=== PATIENT | female | born 1990 | race Two or more races ===

== ENCOUNTER 2024-11-28 09:54 | Emergency (ER) | payer MEDICAID, SELFPAY ==
[2024-11-28 10:17] VITALS: BP 154/98; PULSE 104; RESP 16; TEMP 37.1; O2SAT 98
--- NOTE | 2024-11-28 10:20 | EKG_ITS ---
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
--- NOTE | 2024-11-28 10:20 | XR_ITS ---
Examination: PA lateral chest 2 views TECHNIQUE: Upright PA lateral chest 2 views Date and time: November 28, 2024, 1030 hours INDICATIONS: Chest pain beginning 2 days ago. FINDINGS: Normal heart size The lungs are clear. Suspicious for 20 mm cavitary lesion in the left upper lobe No lobar pneumonia IMPRESSION: Recommend AP lordotic chest follow-up to exclude 20 mm cavitary lesion in the left upper lobe
--- NOTE | 2024-11-28 10:20 | XR_ITS ---
Examination: CT brain head without contrast. 2-D sagittal coronal reconstructions Date and time of exam:November 28, 2024, 1051 hours INDICATIONS: Onset generalized head pain today CTDI: vol (mGy):49.4 DLP: (mGycm):1004 Technique: Multiple CT axial sections of the brain have been obtained, 5 mm slice thickness. Contrast has not been administered. 2-D sagittal, coronal reconstructions have been obtained Low dose protocols were performed. One or more of the following dose reduction techniques were used; automated exposure control, adjustment of the mA and/or KV according to patient size, use of iterative reconstruction technique. Findings: No significant ventricular enlargement. Intra-axial or extra-axial hemorrhage density is not seen. No mass effect or midline shift Basal cisterns are not remarkable. Fourth ventricle is midline. Cranial vault intact. Impression: Negative for acute hemorrhage, mass effect or midline shift Advise clinical correlation follow-up accordingly
[2024-11-28 10:49] LABS: Basophils # (Auto) 0.1 Thou/mm3 (0.0-0.2); Basophils % (Auto) 1 % (0-2.5); Eosinophils # (Auto) 0.0 Thou/mm3 (0.0-0.5); Eosinophils % (Auto) 1 % (0-10); Hematocrit 34.8 % (36.0-46.0); Hemoglobin 11.3 g/dL (12.0-16.0); Immature Granulocytes Auto 0.01 Thou/mm3 (0.00-0.00); Lymphocytes # (Auto) 1.5 Thou/mm3 (1.0-4.8); Lymphocytes % (Auto) 23 % (10-50); Mean Corpuscular HGB Conc 32.5 g/dl (31.0-37.0); Mean Corpuscular Hemoglobin 29.4 pg (25.0-35.0); Mean Corpuscular Volume 91 fL (80-100); Monocytes # (Auto) 0.5 Thou/mm3 (0.0-0.8); Monocytes % (Auto) 8 % (0-12); Neutrophils # (Auto) 4.5 Thou/mm3 (1.8-7.7); Neutrophils % (Auto) 68 % (37-80); Nucleated Red Blood Cell # 0.00 Thou/mm3 (0.00-0.00); Nucleated Red Blood Cell % 0 /100 WBC (0); Platelet Count 363 Thou/mm3 (140-440); RDW Standard Deviation 42.4 fL (36.4-46.3); Red Blood Count 3.84 Miln/mm3 (4.00-5.20); White Blood Count 6.6 Thou/mm3 (3.6-11.0)
--- NOTE | 2024-11-28 10:49 | EDRME_ITS ---
Rapid Medical Screening Exam [facility] Arrival date/time: 11/28/24 09:54 34-year-old female presents to the Emergency Department for complaints of headache, chest pressure, and fingers tingling ongoing x 1 week Chief Complaint: Headache Vital signs: Vital Signs Temperature 98.7 F 11/28/24 10:17 Pulse Rate 104 H 11/28/24 10:17 Respiratory Rate 16 11/28/24 10:17 Blood Pressure 154/98 H 11/28/24 10:17 Pulse Oximetry (%) 98 11/28/24 10:17 Oxygen Delivery Method Room Air 11/28/24 10:17
[2024-11-28 11:14] LABS: Alanine Aminotransferase 12 U/L (10-49); Albumin, Serum 4.6 gm/dL (3.5-5.0); Albumin/Globulin Ratio 1.8 (1.2-2.2); Alkaline Phosphatase 75 U/L (46-116); Anion Gap 10 (7-16); Aspartate Amino Transferase 16 U/L (0-34); BUN/Creatinine Ratio 6 Ratio (12-20); Bilirubin,Total 0.6 mg/dL (0.3-1.2); Blood Urea Nitrogen < 5 mg/dL (9-23); Calcium 9.9 mg/dL (8.3-10.6); Calcium (Corrected) 9.9 mg/dL (8.5-10.1); Carbon Dioxide 26.3 mMol/L (20.0-31.0); Chloride 106 mMol/L (98-107); Creatinine (Component) 0.9 mg/dL (0.6-1.3); Estimated Creatinine Clearance 95.7 mL/min (>60); Free T4 (Free Thyroxine) 1.28 ng/dL (0.89-1.76); Globulin 2.6 gm/dL (2.3-3.5); Glucose 100 mg/dL (74-106); Osmolality,Calculated 280 (275-295); Potassium 3.9 mMol/L (3.4-5.1); Sodium 142 mMol/L (136-145); Thyroid Stimulating Hormone 1.10 uIU/mL (0.55-4.78); Total Protein 7.2 gm/dL (5.7-8.2); Troponin I < 0.002 ng/mL (0.0-0.045); eGFR > 60 See Note
[2024-11-28 11:17] LABS: Collection Type, Urine Clean Catch
[2024-11-28 11:27] LABS: HCG Qualitative,Urine Negative
[2024-11-28 11:33] LABS: Bilirubin,Urine Negative (Negative); Blood,Urine 3+ (Negative); Clarity,Urine Clear (Clear/Hazy); Culture Indicated,Urine Not Indicated; Glucose, Urine Negative (Negative); Ketones,Urine Negative (Negative); Leukocyte Esterase,Urine Positive (Negative); Nitrite,Urine Negative (Negative); PH,Urine 6.5 (5.0-7.0); Protein,Urine 1+ (Neg - Trace); RBC,Urine 148 /hpf (0-3); Specific Gravity,Urine 1.005 (1.001-1.035); Squamous Epithelial Cell,Urine < 1 /hpf (0-5); Urobilinogen,Urine Negative mg/dL (0.0-1.0); WBC,Urine 8 /hpf (0-5)
[2024-11-28 11:40] LABS: Color,Urine Lt-Red (Lt Yel-Yel)
--- NOTE | 2024-11-28 12:16 | EDNOTE_ITS ---
ED Headache RME/HPI General Chief Complaint: Headache Stated Complaint: HEADACHE SINCE TUESDAY, TINGLING IN FINGERS Time Seen by Provider: 11/28/24 11:30 Arrival date/time: 11/28/24 09:54 RME / HPI RME / HPI Narrative: 34-year-old female patient with significant history of anxiety presents to the Emergency Department for complaints of headache, chest pressure, and bilateral hand/fingers tingling ongoing x 1 week. Headache is described as dull ache, location top of the head, severity mild. Patient also complained of chest pressure, has been ongoing for 2 days, severity mild. Patient denies any cough denies any fever denies any shortness of breath denies any losing weight. Denies any exposure to somebody who is having chronic cough. No medication was taken prior to ER visit. Related Data Home Medications ?Medication ?Instructions ?Recorded ?Confirmed [id number] 1 mg 1 tab PO DAILY #0 tab s 09/27/13 10/07/20 tablet Previous Rx's ?Medication ?Instructions ?Recorded ibuprofen 800 mg tablet 800 mg PO Q8H PRN pain #30 t abs 07/26/20 hydrocodone 5 mg-acetaminophen 300 1 tab PO Q4H PRN pa in #30 tabs 10/07/20 mg tablet rizatriptan 10 mg tablet (Maxalt) 10 mg PO Q2H PRN lisa marian headache 11/28/24 #20 tabs Allergies Allergy/AdvReac Type Severity Reaction Status Date / Time naproxen Allergy Mild Swelling Verified 11/28/24 09:57 of Lip/Tongue/Throat Review of Systems Review of Systems Narrative Review of Systems: Review of system reviewed and within normal limits except mentioned in HPI ED Exam Narrative Physical exam: VITAL SIGNS: Reviewed. GENERAL APPEARANCE: Alert and interactive, follows commands, no acute distress, HEAD AND FACE: Non-traumatic. ENT: PERRL, pink conjunctivitis, eyelid no trauma, Mucous membrane moist. NECK: Supple, nontender, no nuchal rigidity. CHEST: No tenderness, no crepitus, no paradoxical movement, no retractions. LUNGS: Clear, well ventilated, symmetric, no rales, no wheezing, no ronchi, no stridor, good breath sounds bilaterally. HEART: Regular rate, regular rhythm, no murmur, no gallops. ABDOMEN: Soft, positive bowel sounds, nondistended, no guarding, nontender, no rebound, no masses, RECTAL: Deferred. GENITAL: Deferred. NEUROLOGICAL: Gross motor function intact sensory function intact, Appropriate for age. MUSCULOSKELETAL: low back nontender, full range of motion. EXTREMITIES: Nontender, full range of motion. SKIN: Color pink, dry, no rash, no lacerations, no abrasions, no contusions. LYMPHATICS: Deferred. Course Quality Measures none Orders Category Date Time Status EKG (ED ONLY) *Do not use* NOW Care 11/28/24 10:[address] head/brain wo con Stat Exams 11/28/24 10:20 Completed EKG (ED Only) Stat Exams 11/28/24 10:20 Draft XR chest 2V Stat Exams 11/28/24 10:20 Completed CBC Stat Lab 11/28/24 10:22 Completed Comprehensive Metabolic Panel Stat Lab 11/28/24 10:22 Completed Free T4 (Free Thyroxine) Stat Lab 11/28/24 10:22 Completed HCG Qualitative,Urine Stat Lab 11/28/24 11:00 Completed TSH [Thyroid Stimulating Hormone] Stat Lab 11/28/24 10:22 Completed Troponin I Stat Lab 11/28/24 10:22 Completed UA, C/S IF [Urinalysis, C/S if Indicated] Stat Lab 11/28/24 11:00 Completed Vital Signs Vital signs: Vital Signs Temperature 98.7 F 11/28/24 10:17 Pulse Rate 104 H 11/28/24 10:17 Respiratory Rate 16 11/28/24 10:17 Blood Pressure 154/98 H 11/28/24 10:17 Pulse Oximetry (%) 98 11/28/24 10:17 Oxygen Delivery Method Room Air 11/28/24 10:17 Headache MDM Narrative MDM Narrative:: 34-year-old female patient with significant history of anxiety presents to the Emergency Department for complaints of headache, chest pressure, and bilateral hand/fingers tingling ongoing x 1 week. Headache is described as dull ache, location top of the head, severity mild. Patient also complained of chest pressure, has been ongoing for 2 days, severity mild. Patient denies any cough denies any fever denies any shortness of breath denies any losing weight. Denies any exposure to somebody who is having chronic cough. No medication was taken prior to ER visit. CT scan of the head came back unremarkable. Patient's CBC also came back normal no pathology for metabolic abnormality noted. Troponin is normal. Patient's urinalysis is a dirty collection, patient told me that she is on her menstruation today. Denies any dysuria. EKG showed normal sinus rhythm, ventricular rate of 97 beats per per minute, no ST segment elevation or depression noted. Chest x-ray showed Normal heart size The lungs are clear. Suspicious for 20 mm cavitary lesion in the left upper lobe No lobar pneumonia Results of the CT scan of the head and chest x-ray and laboratory findings all discussed with the patient, especially the chest x-ray that showed possible cavitary lesions in the lung. Patient is denying any symptoms in the lung. Patient was advised to closely follow-up with PCP and for further imaging of her chest. Patient told me that she will see her PCP in few days. I will discharge this patient on Maxalt. Further imaging is not needed at this time. Patient appears nontoxic and hemodynamically stable .Decision to discharge the patient. The patient/family was given an opportunity to ask questions and understood their discharge instructions. Discharge instructions specifically included follow up provider and time frame, current and/or new medications and possible side effects, indications for sooner follow up or return to the emergency department, and the expected course of current diagnosis. Patient reports feeling better as well and giving evidence of significant clinical improvement, I believe patient is now a candidate for discharge. Patient data External records reviewed:: None Clinical information provided by:: patient Social determinants that could affect healthcare access:: none Patient has the following chronic illnesses:: None How is presenting disease/condition affected by chronic disease/condition?: no chronic disease Evaluation data The following diagnostics were reviewed and interpreted by me:: lab results, radiology exam(s) and EKG tracing(s) Lab and/or radiology exams considered but not ordered:: None Interpretation Summary: See results MDM Medications / Prescriptions Medications or Prescriptions considered but not ordered:: None Medication administrations:: None Consultations Consultation(s) initiated? (list below): No Diagnosis Differential diagnosis headache: migraine, headache and other (CVA, anxiety) Most likely diagnosis given after review of the tests above:: Headache, incidental finding of possible lesion in the lung, Admission Indicated Admission indicated?: not indicated Admission Request Was there a request for admission?: No Disposition Plan Disposition Plan: Discharge Discharge Attestation Discharge Attestation: The patient was given an opportunity to ask questions and understood the discharge instructions. Discharge instructions specifically effects, indications for sooner follow up or return to the emergency department, and the expected course of current diagnosis. Patient condition: Stable Discharge Plan Plan Patient Disposition: HOME (Self Care) Discharge Disposition comment: Stable Prescriptions/Referrals Prescriptions/Med Rec: New rizatriptan [Maxalt] 10 mg tablet 10 mg PO Q2H PRN (Reason: migraine headache) Qty: 20 0RF Rx Instructions: do not exceed 3 doses per 24 hrs No Action [id number] 1 mg Tablet 1 tab PO DAILY Qty: 0 hydrocodone-acetaminophen 5-300 mg tablet 1 tab PO Q4H MDD 6 PRN (Reason: pain) Qty: 30 0RF ibuprofen 800 mg tablet 800 mg PO Q8H PRN (Reason: pain) Qty: 30 0RF Referrals: Vince Zapien MD [Primary Care Provider] - In 1 week Problem List Clinical Impression: Headache Patient/Caregiver Discharge Instructions Discharge Activity: activity as tolerated Education Materials: Self-Care for Headaches Additional Instructions: Thank you for the opportunity for serving you today. You are stable for discharged . You are advised to: Follow-up with your PCP in 1 to 2 days Return to ED for worsening of symptoms Increase oral fluids Take medication as prescribed Please follow-up with your PCP and ask for further evaluation regarding your possible lesion in your lung. CT scan of your head today came back unremarkable Print Language: Uzbek Stand Alone Forms: Carly Award Info., Patient Portal Info Letter CHERRY/DONNELL Supervising Physician ANAT Supervising Physician: MD Maribell
== END 2024-11-28 12:40 | disposition home or self-care (01) ==
PROVIDERS: Nurse Practitioner Primary Care; Emergency Provider Emergency Medicine; PCP Family Medicine
DX: R51.9 Headache, unspecified (principal); R07.89 Other chest pain; R20.2 Paresthesia of skin
CPT/HCPCS: 36415; 70450; 71046; 80053; 81001; 81025; 84439; 84443; 84484; 85025; 93005; 99284

== ENCOUNTER → 2025-01-09 | Outpatient (CLI) | payer MEDICAID, SELFPAY ==
--- NOTE | 2025-01-09 13:00 | XR_ITS ---
Examination: CT chest, without intravenous contrast. Sagittal and coronal 2-D reconstructions. Exam date and time: January 09, 2025, 1245 hours INDICATIONS: Chest film November 28, 2024 suspicious for 20 mm cavitary lesion left upper lobe CTDI:vol (mGy) 11.7 DLP: (mGycm) 437 Technique: Multiple 3.0 mm axial sections of the chest to been obtained. Bone and lung density settings are obtained. Sagittal and coronal 2-D reconstructions have been obtained. Low dose protocols were performed. One or more of the following dose reduction techniques were used; automated exposure control, adjustment of the mA and/or KV according to patient size, use of iterative reconstruction technique. Findings: No thoracic aortic aneurysm dilatation Pulmonary artery segments are nonenlarged No paratracheal tracheobronchial or bronchopulmonary adenopathy No cavitary lesion left upper lobe is confirmed 2 mm pulmonary nodule right middle lobe image 185 3 mm pulmonary nodule lingular segment image 130 No visualized liver or splenic lesion Contracted gallbladder No pancreatic mass IMPRESSION: No cavitary lesion left upper lobe is confirmed Subcentimeter pulmonary nodules as above, suggest 3-month follow-up PA lateral chest
== END | disposition home or self-care (01) ==
LOC: CCTX 12:34
PROVIDERS: PCP Internal Medicine; Referring Provider Internal Medicine; Visit Provider Internal Medicine
DX: R91.8 Other nonspecific abnormal finding of lung field (principal)
CPT/HCPCS: 71250